=== PATIENT | male | born 1955 | race Caucasian/White ===

== ENCOUNTER 2018-12-29 18:23 | Emergency (ER) | payer OTHER, MEDICAID ==
[~2018-12-29] VITALS: Ht 182.9 cm; Wt 90.7 kg
[2018-12-29] MEDS ORDERED: KETOROLAC TROMETH 60MG/2ML VIAL IM ONE (20:00)
[2018-12-29] MEDS ORDERED: methylPREDNISolone SOD SUCC 125 MG/2 ML VL IM ONE (20:00)
[2018-12-29] MEDS ORDERED: methylPREDNISolone SOD SUCC 125 MG/2 ML VL ONE (20:12)
[2018-12-29] MEDS ORDERED: cloNIDine HCL 0.1 MG TAB PO ONE (21:30)
[2018-12-29] MEDS ORDERED: hydrALAZINE HCL 20 MG/ML VL IM ONE (22:45)
[2018-12-29 23:13] VITALS: BP 145/110
== END 2018-12-29 23:23 | disposition home or self-care (01) ==
LOC: ER 18:32
DX: S22.41XA Multiple fractures of ribs, right side, initial encounter for closed fracture (principal); S92.352A Displaced fracture of fifth metatarsal bone, left foot, initial encounter for closed fracture; I10 Essential (primary) hypertension; F17.210 Nicotine dependence, cigarettes, uncomplicated; W11.XXXA Fall on and from ladder, initial encounter; Y93.89 Activity, other specified; Y99.8 Other external cause status; Y92.89 Other specified places as the place of occurrence of the external cause
CPT/HCPCS: 29515; 71111; 73630; 96372; 99283; J0360; J1885; J2930